=== PATIENT | male | born 1990 | race Caucasian/White ===

== ENCOUNTER 2018-09-28 08:50 | Emergency (ER) | payer OTHER ==
[~2018-09-28] VITALS: Ht 167.6 cm; Wt 64.4 kg
[2018-09-28 09:05] VITALS: BP 120/64
--- NOTE | 2018-09-28 09:30 | NUR ---
BIB SELF. AAO X4 C/O LEFT HAND 2ND AND 3RD DIGIT PAIN/SWELLING AFTER MOVING FURNITURE 2 DAYS AGO. PT STS "I HIT IT AGAINST A WALL MOVING SOME FURNITURE." +CMS TO LEFT HAND FINGERS. ER TO EVALUATE PT.
[2018-09-28] MEDS ORDERED: IBUPROFEN 800 MG TAB PO ONE (09:35)
--- NOTE | 2018-09-28 09:35 | NUR ---
DR SCHMIDT AT BEDSIDE FOR PT EVALUATION
--- NOTE | 2018-09-28 09:44 | NUR ---
HERB DOCTOR AT BEDSIDE
[2018-09-28 11:20] VITALS: BP 118/62
== END 2018-09-28 11:20 | disposition home or self-care (01) ==
LOC: MED 08:50
DX: S60.222A Contusion of left hand, initial encounter (principal); F12.10 Cannabis abuse, uncomplicated; X58.XXXA Exposure to other specified factors, initial encounter; Y93.89 Activity, other specified; Y92.008 Other place in unspecified non-institutional (private) residence as the place of occurrence of the external cause; Y99.8 Other external cause status
CPT/HCPCS: 73130; 99283; Q0092

== ENCOUNTER 2021-03-21 06:20 | Emergency (ER) | payer SELFPAY ==
[~2021-03-21] VITALS: Ht 167.6 cm; Wt 68.0 kg
[2021-03-21 06:30] VITALS: BP 138/77
--- NOTE | 2021-03-21 06:33 | NUR ---
TO LOBBY A/W BED AMBULATORY
[2021-03-21] MEDS ORDERED: KETOROLAC 60 MG/2 ML VIAL IM ONE ×2 (06:49→06:50)
[2021-03-21] MEDS ORDERED: IBUP-2213 PO (06:54)
[2021-03-21 07:04] VITALS: BP 138/77
--- NOTE | 2021-03-21 07:04 | NUR ---
PCR COLLECTED AND TAKEN TO LAB.
== END 2021-03-21 07:04 | disposition home or self-care (01) ==
LOC: MED 06:20
DX: R50.9 Fever, unspecified (principal); Z20.822 Contact with and (suspected) exposure to COVID-19; M79.10 Myalgia, unspecified site; F17.200 Nicotine dependence, unspecified, uncomplicated
CPT/HCPCS: 96372; 99283; J1885; U0003

== ENCOUNTER 2021-03-30 08:50 | Emergency (ER) | payer MEDICAID ==
[~2021-03-30] VITALS: Ht 167.6 cm; Wt 67.6 kg
[~2021-03-30 08:50] MED LIST: IBUP-2213 PO
[2021-03-30 08:56] VITALS: BP 148/61
--- NOTE | 2021-03-30 09:11 | NUR ---
BIB FAMILY C/O 10/10 FEET & ANKLES PAIN S/P FALL FROM STAIR TO FLOOR 10 STEPS X TODAY.
[2021-03-30] MEDS ORDERED: ACETAMINOPHEN EXTRA STRENGTH 500 MG TAB PO ONE (09:40)
[2021-03-30] MEDS ORDERED: wheelchair (11:57)
--- NOTE | 2021-03-30 12:04 | NUR ---
PER ERMD BOTH OF BY LEGS WERE PLACED IN A SPLINT AND PMCS WAS ASSESSED BEFORE AND AFTER ALL WNL. ERMD ASSESSED SPLINT AND APPROVED.
--- NOTE | 2021-03-30 12:09 | NUR ---
Patient discharged with v/s stable. Written and verbal after care instructions given and explained. Patient verbalized understanding. Ambulatory with steady gait. All questions addressed prior to discharge. Advised to follow up with PMD.
== END 2021-03-30 12:08 | disposition home or self-care (01) ==
LOC: MED 08:50
DX: S92.002A Unspecified fracture of left calcaneus, initial encounter for closed fracture (principal); S92.001A Unspecified fracture of right calcaneus, initial encounter for closed fracture; F12.90 Cannabis use, unspecified, uncomplicated; Z79.899 Other long term (current) drug therapy; W19.XXXA Unspecified fall, initial encounter; Y93.39 Activity, other involving climbing, rappelling and jumping off; Y92.89 Other specified places as the place of occurrence of the external cause; Y99.8 Other external cause status
CPT/HCPCS: 29515; 73502; 73630; 73650; 99284

== ENCOUNTER 2022-05-05 13:52 | Emergency (ER) | payer MEDICAID, OTHER ==
[~2022-05-05] VITALS: Ht 167.6 cm; Wt 69.4 kg
[~2022-05-05 13:52] MED LIST changes: +wheelchair
[2022-05-05 13:57] VITALS: BP 141/73
--- NOTE | 2022-05-05 15:17 | NUR ---
ASSUMED PATIENT CARE, NURSING ASSESSMENT COMPLETED.
[2022-05-05] MEDS ORDERED: [UNRECOGNIZED DRUG - CODE] TP (15:24)
[2022-05-05] MEDS ORDERED: IBUP-2213 PO (15:24)
--- NOTE | 2022-05-05 15:25 | NUR ---
PROVIDER AT BEDSIDE, UPDATING PATIENT.
--- NOTE | 2022-05-05 15:42 | NUR ---
DISPO AND MEDICAL DECISION MAKING DC HOME WITH E-RX, AND AFTERCARE INSTRUCTIONS. UNDERSTOOD BY PATIENT WELL. VS WNL. THUMB SPICA APPLIED TO RIGHT THUMB, PULSES WNL
[2022-05-05 15:46] VITALS: BP 115/62
== END 2022-05-05 15:46 | disposition home or self-care (01) ==
LOC: MED 13:52
DX: S62.011A Displaced fracture of distal pole of navicular [scaphoid] bone of right wrist, initial encounter for closed fracture (principal); S00.33XA Contusion of nose, initial encounter; B07.8 Other viral warts; Z79.899 Other long term (current) drug therapy; W18.30XA Fall on same level, unspecified, initial encounter; Y93.89 Activity, other specified; Y92.89 Other specified places as the place of occurrence of the external cause; Y99.8 Other external cause status
CPT/HCPCS: 70150; 73110; 99284

== ENCOUNTER 2023-01-01 01:51 | Emergency (ER) | payer OTHER ==
[~2023-01-01] VITALS: Ht 167.6 cm; Wt 77.1 kg
[~2023-01-01 01:51] MED LIST changes: +[UNRECOGNIZED DRUG - CODE] TP
[2023-01-01 01:55] VITALS: BP 129/83; PULSE 52; RESP 18; TEMP 97.2; O2SAT 100
[2023-01-01 02:20] VITALS: O2SAT 99
[2023-01-01] MEDS ORDERED: KETOROLAC 30 MG/ML VIAL IM ONE (03:05)
[2023-01-01] MEDS ORDERED: PROCHLORPERAZINE 10 MG/2 ML VIAL IM ONE (03:05)
[2023-01-01] MEDS ORDERED: IBUP-2213 PO (04:25)
== END 2023-01-01 04:29 | disposition home or self-care (01) ==
LOC: MED 01:51
DX: G43.909 Migraine, unspecified, not intractable, without status migrainosus (principal); Z79.899 Other long term (current) drug therapy
CPT/HCPCS: 96372; 99284; J0780; J1885; Q0163